=== PATIENT | female | born 1940 | race Caucasian/White ===

== ENCOUNTER 2022-08-02 01:40 | Emergency (ER) | payer MEDICARE, SELFPAY ==
[2022-08-02] VITALS (12 sets, daily range): BP systolic 160–192; BP diastolic 69–79; PULSE 63–82; RESP 16; TEMP 36.8; O2SAT 95–99; BMI 24.6
--- NOTE | 2022-08-02 02:24 | CRLHL7_ITS ---
For Patients: As a result of the Cures Act, medical imaging exams and procedure reports are released immediately into your electronic medical record. You may view this report before your referring provider. If you have questions, please contact your health care provider. INDICATION: Low sternal chest pain TECHNIQUE: Chest radiograph 1 view COMPARISON: None FINDINGS: Mediastinum: The mediastinum is normal in appearance. The cardiac silhouette is mildly enlarged but may be accentuated by the portable technique. Lung: Both lungs are unremarkable in appearance. No sign of pleural effusion seen. No pneumothorax is identified. Bone and Soft tissue: Unremarkable for age. IMPRESSION: 1. The cardiac silhouette is mildly enlarged but may be accentuated by the portable technique. Dictated by Andrade Sampson MD @ 08/02/2022 2:42:57 AM Dictated by: Andrade Sampson MD @ 08/02/2022 02:43:01 (Electronically Signed)
[2022-08-02] MEDS: GI COCKTAIL (VISC LIDO/ANTACID) 30 ML PO (02:52)
[2022-08-02 03:07] LABS: Chloride* 109 mmol/L (96-114); Potassium* 3.6 mmol/L (3.6-5.1); Sodium* 141 mmol/L (135-149)
--- NOTE | 2022-08-02 03:08 | ED.CHESTPAIN ---
HPI - Chest Pain General Chief Complaint: Chest Pain Stated Complaint: Chest pain Time Seen by Provider: 08/02/22 02:17 History of Present Illness HPI narrative: 82-year-old woman who developed pain the low sternum noticed while trying to go to bed this evening. She would describe it is soreness. Not radiating. She denies a history of GERD/heartburn. Has not tried any treatment. She is not short of breath. This discomfort is not pleuritic. She just thought she better get it checked out. She does exercise regularly with no unusual exercise intolerance. Actually went for a good walk earlier in the day on her usual course. No back pain. No fever. No cough cold symptoms. I did note that her blood pressure little bit up on arrival. Otherwise no known cardiovascular disease. She says she was checking her pulse to see whether not it was irregular but it seemed normal. She does recall doing some painting last week but was not feeling bad following or noted that she had injured herself. She does later recall a remote history of a collapsed lung. Related Data Home Medications Medication Instructions Recorded Confirmed No Known Home Medications 08/02/22 08/02/22 Allergies Allergy/AdvReac Type Severity Reaction Status Date / Time lidocaine Allergy Intermediate Anaphylaxis Verified 08/02/22 02:06 procaine [From Novocain] Allergy Intermediate Anaphylaxis Verified 08/02/22 02:06 Review of Systems Status of ROS Reports: 6 or more systems reviewed and unremarkable except as noted in History and below Exam Narrative Exam Narrative: Quite pleasant. Of good energy. Face appear little flushed on arrival less so during this exam. She is breathing easily. Neck is supple. Oropharynx is little dry. Lungs are clear. Heart with a regular rate and rhythm and without murmur rub or gallop. Abdomen is overweight soft and nontender. 1+ and equal femoral pulses. Palpating on the chest wall maybe subtly reproducible in the left low rib/anterior chest. Extremities are without edema or pain. She is moving all extremities without difficulty. Is well perfused. Skin is warm and dry. No rash/blisters apparent. Const Vital Signs, click to edit/add: Vital Signs - 24 hr 08/02/22 02:06 08/02/22 02:25 08/02/22 02:24 Temperature 98.3 F Pulse Rate 75 Pulse Rate [Pulse Oximeter] 71 Respiratory Rate 16 Blood Pressure Blood Pressure [Left Upper Arm] 189/79 H Pulse Oximetry 97 96 99 Oxygen Delivery Method Room Air 08/02/22 02:30 08/02/22 02:31 08/02/22 02:45 Temperature Pulse Rate 71 71 70 Pulse Rate [Pulse Oximeter] Respiratory Rate Blood Pressure 192/79 H Blood Pressure [Left Upper Arm] Pulse Oximetry 98 96 96 Oxygen Delivery Method 08/02/22 03:00 08/02/22 03:02 08/02/22 03:15 Temperature Pulse Rate 69 72 71 Pulse Rate [Pulse Oximeter] Respiratory Rate Blood Pressure 184/77 H Blood Pressure [Left Upper Arm] Pulse Oximetry 99 97 98 Oxygen Delivery Method 08/02/22 03:30 08/02/22 03:31 08/02/22 04:38 Temperature Pulse Rate 64 63 Pulse Rate [Pulse Oximeter] 82 Respiratory Rate 16 Blood Pressure 166/69 H Blood Pressure [Left Upper Arm] 160/72 H Pulse Oximetry 97 95 98 Oxygen Delivery Method Room Air Documenting provider has reviewed patient's vital signs: yes Course Vital Signs Vital signs: Initial Vital Signs Temperature 98.3 F 08/02/22 02:06 Temperature Source Temporal Artery Scan 08/02/22 02:06 Pulse Rate 71 08/02/22 02:06 Respiratory Rate 16 08/02/22 02:06 Blood Pressure 189/79 H 08/02/22 02:06 Blood Pressure Mean 115 08/02/22 02:06 Pulse Oximetry 97 08/02/22 02:06 Oxygen Delivery Method 08/02/22 02:06 Vital Signs Temperature 98.3 F 08/02/22 02:06 Pulse Rate 71 08/02/22 02:06 Respiratory Rate 16 08/02/22 02:06 Blood Pressure 189/79 H 08/02/22 02:06 Pulse Oximetry 97 08/02/22 02:06 Oxygen Delivery Method 08/02/22 02:06 Temperature 98.3 F 08/02/22 02:06 Pulse Rate 82 08/02/22 04:38 Respiratory Rate 16 08/02/22 04:38 Blood Pressure 160/72 H 08/02/22 04:38 Pulse Oximetry 98 08/02/22 04:38 Oxygen Delivery Method 08/02/22 04:38 MDM - Chest Pain MDM Narrative Medical decision making narrative: Certainly possible pneumothorax could have recurred or pneumomediastinum. Vascular disruption, ischemic cardiovascular event as well. Inflammation of chest wall or pleuritis however pain is not pleuritic. GERD is a possibility, hiatal hernia. Labs were drawn. We decided to wait on IV just pending results of labs. Remained mildly hypertensive though with normal labs. Repeat troponin also negative. EKG reviewed as below. Chest x-ray was WNL by my read-radiology questioned cardiac silhouette being somewhat full though think this would be due to portable chest x-ray. Given allergy to lidocaine did a trial with Maalox equivalent alone. This did not change this mild discomfort. Re-examination showed that over time in the ER the soreness slides off to the left a little bit up underneath breast on the ribs. Still somewhat reproducible. Lab Data Attestation: I reviewed the patient's lab results. Labs: Lab Results 08/02/22 08/02/22 08/02/22 Range/Units 02:24 02:45 02:45 D-Dimer Quant (PE/DVT) < 0.27 (0.00-0.50) ug/ml Sodium 141 (135-149) mmol/L Potassium 3.6 (3.6-5.1) mmol/L Chloride 109 (96-114) mmol/L Carbon Dioxide 26 (20-32) mmol/L BUN 13 (7-30) mg/dL Creatinine 0.5 (0.5-1.5) mg/dL Estimated Creat Clear 31.60 Estimated GFR 92 ml/min Glucose 128 H (60-115) mg/dL Calcium 8.7 (8.4-10.6) mg/dL Total Bilirubin 0.3 (0.1-1.5) mg/dL Direct Bilirubin 0.1 (0.0-0.5) mg/dL AST 27 (12-35) U/L ALT 21 (4-35) U/L Alkaline Phosphatase 80 (40-150) U/L Troponin I < 0.01 L (0.01-0.04) ng/mL C-Reactive Protein < 0.5 L (0.5-1.0) mg/dL Total Protein 7.1 (6.0-8.3) g/dL Albumin 4.0 (3.3-5.0) g/dL POC Troponin I 0.00 L (0.01-0.04) ng/ml 08/02/22 Range/Units 04:15 D-Dimer Quant (PE/DVT) (0.00-0.50) ug/ml Sodium (135-149) mmol/L Potassium (3.6-5.1) mmol/L Chloride (96-114) mmol/L Carbon Dioxide (20-32) mmol/L BUN (7-30) mg/dL Creatinine (0.5-1.5) mg/dL Estimated Creat Clear Estimated GFR ml/min Glucose (60-115) mg/dL Calcium (8.4-10.6) mg/dL Total Bilirubin (0.1-1.5) mg/dL Direct Bilirubin (0.0-0.5) mg/dL AST (12-35) U/L ALT (4-35) U/L Alkaline Phosphatase (40-150) U/L Troponin I (0.01-0.04) ng/mL C-Reactive Protein (0.5-1.0) mg/dL Total Protein (6.0-8.3) g/dL Albumin (3.3-5.0) g/dL POC Troponin I 0.00 L (0.01-0.04) ng/ml ECG Data Attestation: I personally reviewed and interpreted this ECG as follows: (Normal sinus rhythm rate of 71) Discharge Plan Discharge Clinical Impression: Atypical chest pain, Chest wall pain Patient Disposition: Home, Self-Care Condition: Stable Instructions: Chest Wall Pain (ED) Additional Instructions: Unclear what this soreness is at this point. Your blood pressure was a little bit elevated but otherwise everything else I would say was reassuring. It is a little reproducible which implies a chest wall/musculoskeletal issue. In the short term could try ibuprofen or acetaminophen. Monitor for worsening particularly if associated with lightheadedness or shortness of breath. I have not been able to identify a reason to recommend any restrictions at this point. Would otherwise follow-up with your primary care provider in the next week or 2 for discussion of further workup. Prescriptions: No Action No Known Home Medications Follow Up/Referrals: Coral Slaughter MD [Primary Care Provider] - Stand Alone Forms: [employer] Info Instructions
[2022-08-02 03:09] LABS: Creatinine* 0.5 mg/dL (0.5-1.5); Estimated Glomerular Filt Rate 92 ml/min
[2022-08-02 03:10] LABS: Alanine Aminotransferase* 21 U/L (4-35); Alkaline Phosphatase* 80 U/L (40-150); Aspartate Amino Transferase* 27 U/L (12-35); Bilirubin Direct* 0.1 mg/dL (0.0-0.5); Bilirubin Total* 0.3 mg/dL (0.1-1.5); Blood Urea Nitrogen* 13 mg/dL (7-30); Carbon Dioxide* 26 mmol/L (20-32); Glucose* 128 mg/dL (60-115); Total Protein* 7.1 g/dL (6.0-8.3)
[2022-08-02 03:11] LABS: Calcium* 8.7 mg/dL (8.4-10.6)
--- NOTE | 2022-08-02 03:11 | ED.NURSE ---
Pain unchanged after Maalox.
[2022-08-02 03:16] LABS: C Reactive Protein* < 0.5 mg/dL (0.5-1.0); D Dimer Quantitative* < 0.27 ug/ml (0.00-0.50)
[2022-08-02 03:42] LABS: Troponin I* < 0.01 ng/mL (0.01-0.04)
== END 2022-08-02 04:38 | disposition home or self-care (01) ==
PROVIDERS: Emergency Provider Family Medicine; PCP Family Medicine
DX: R07.89 Other chest pain (principal)
CPT/HCPCS: 36415; 71045; 80048; 80076; 84484; 85379; 86140; 93005; 94761; 99284; 99285; A9270

== ENCOUNTER 2024-06-02 01:05 | Emergency (ER) | payer MEDICARE, SELFPAY ==
[2024-06-02 01:14] VITALS: BP 196/108; PULSE 87; RESP 16; TEMP 36.8; O2SAT 97; BMI 24.6
--- NOTE | 2024-06-02 01:44 | ED_ITS ---
HPI - General Adult General Chief complaint: Laceration/Wound Stated complaint: fall,head laceration Time Seen by Provider: 06/02/24 01:44 History of Present Illness HPI narrative: tried to walk around room with lights off and hit head on closet door. denies LOC, not witnessed. pt states 2 lacs on forehead. pt put abx ointment on and cleaned up before coming to ER. 84-year-old woman presenting to the emergency department following a cut to her head. She was ambulating around the room with her lights off and struck her head on the closet door. She has no neck or back pain. Denies loss of consciousness. No nausea. She was impressed with the amount of blood. Did c lean up including wounds before coming to the emergency department. No visual disturbance. No significant head pain. Related Data Home Medications ?Medication ?Instructions ?Recorded ?Confirmed No Known Home Medications 08/02/22 08/02/22 Allergies Allergy/AdvReac Type Severity Reaction Status Date / Time lidocaine Allergy Intermediate Anaphylaxis Verified 08/02/22 02:06 procaine (From Novocain) Allergy Intermediate Anaphylaxis Verified 08/02/22 02:06 tetracycline AdvReac Verified 06/02/24 01:44 Review of Systems Status of ROS: Reports: 6 or more systems reviewed and unremarkable except as noted in History and below PFSH [facility] Social History Smoking Status: Never smoker How often do you have a drink containing alcohol: never AUDIT-C Alcohol total score: 0 Non-prescribed substance use: denies use Exam Narrative: Exam Narrative: Very pleasant. Quite alert. Moving all extremities without difficulty. Ambulating without notable difficulty. Blood pressure is initially noted to be somewhat elevated. Cranial nerves 2-12 intact. Pupils are equal briskly reactive. Neck is supple nontender. Back also nontender without deformity. Area of injury is the right upper parietal scalp and another smaller wound more midline and anterior. Main laceration as noted is a clean slanting relatively linear cut. Full dermal Inch and 1/2 in length. Second wound is noted is oozing lightly 1/2 inch in length. No step-offs appreciated. Mild swelling surrounding both wounds. Const: Vital Signs, click to edit/add: Vital Signs - 24 hr 06/02/24 01:14 Temperature 98.3 F Pulse Rate [Pulse Oximeter] 87 Respiratory Rate 16 Blood Pressure [Ri ght Upper Arm] 196/108 H Pulse Oximetry 97 Oxygen Delivery Me thod Room Air Documenting provider has reviewed patient's vital signs: yes Course Vital Signs Vital signs: Initial Vital Signs Temperature 98.3 F 06/02/24 01:14 Temperature Source Temporal Artery Scan 06/02/24 01:14 Pulse Rate 87 06/02/24 01:14 Respiratory Rate 16 06/02/24 01:14 Blood Pressure 196/108 H 06/02/24 01:14 Blood Pressure Mean 137 H 06/02/24 01:14 Blood Pressure Position Sitting 06/02/24 01:14 Pulse Oximetry 97 06/02/24 01:14 Oxygen Delivery Method Room Air 06/02/24 01:14 Vital Signs Temperature 98.3 F 06/02/24 01:14 Pulse Rate 87 06/02/24 01:14 Respiratory Rate 16 06/02/24 01:14 Blood Pressure 196/108 H 06/02/24 01:14 Pulse Oximetry 97 06/02/24 01:14 Oxygen Delivery Method Room Air 06/02/24 01:14 Temperature 98.3 F 06/02/24 01:14 Pulse Rate 87 06/02/24 01:14 Respiratory Rate 16 06/02/24 01:14 Blood Pressure 196/108 H 06/02/24 01:14 Pulse Oximetry 97 06/02/24 01:14 Oxygen Delivery Method Room Air 06/02/24 01:14 Medical Decision Making MDM Narrative Medical decision making narrative: Considering physical exam and reported mechanism I do not think head imaging is necessary here. No fall associated. Simply walked in to/struck sharp edge of the closet door. No anticoagulants. She did not feel she would need anesthesia as plan is to staple. Following a little more cleaning with Shur-Clens type solution, I placed 5 mariya in the larger wound and 2 in the smaller. Good wound approximation and control of bleeding noted. See patient discharge plan for further discussion These mariya can come out in 7-10 days Okay to get wet but avoid soaking while mariya are in after this initial clean up Yes can take ibuprofen or acetaminophen or I believe you mentioned aspirin as well. Might want to place an ice pack a couple of times daily over the next few days. Happier holidays to you. Medical Records Medical records reviewed: Yes I reviewed the patient's medical records Discharge Plan Discharge Clinical Impression: Laceration of scalp, Closed head injury Patient Disposition: Home, Self-Care Condition: Improved Additional Instructions: These mariya can come out in 7-10 days Okay to get wet but avoid soaking while mariya are in after this initial clean up Yes can take ibuprofen or acetaminophen or I believe you mentioned aspirin as well. Might want to place an ice pack a couple of times daily over the next few days. Happier holidays to you. Prescriptions: No Action No Known Home Medications Follow Up/Referrals: Coral Slaughter MD [Primary Care Provider] - Stand Alone Forms: [facility] Info Instructions
== END 2024-06-02 02:47 | disposition home or self-care (01) ==
PROVIDERS: Emergency Provider Family Medicine; PCP Family Medicine
DX: S01.01XA Laceration without foreign body of scalp, initial encounter (principal)
CPT/HCPCS: 12001; 99283; 99284